=== PATIENT | female | born 1980 | race Hispanic/Latino ===

== ENCOUNTER 2021-01-28 16:13 | Emergency (ER) | payer SELFPAY ==
[~2021-01-28] VITALS: Ht 154.9 cm; Wt 86.2 kg
[2021-01-28] MEDS ORDERED: DiphenhydrAMINE HCL 50 MG/ML VIAL ONE (16:29)
[2021-01-28] MEDS ORDERED: FAMOTIDINE 20MG VIAL IV ONE ×2 (16:29→16:30)
[2021-01-28] MEDS ORDERED: SOLU-MEDROL 125MG VIAL ONE (16:29)
[2021-01-28] MEDS ORDERED: DiphenhydrAMINE HCL 50 MG/ML VIAL IV ONE (16:30)
[2021-01-28] MEDS ORDERED: SOLU-MEDROL 125MG VIAL IVP ONE (16:30)
[2021-01-28] MEDS ORDERED: CETI1SOL17 PO (16:51)
[2021-01-28] MEDS ORDERED: FAMO-136 PO (16:51)
[2021-01-28] MEDS ORDERED: PRED20TA3 PO (16:51)
[2021-01-28] MEDS ORDERED: EPIN0.3P3 IJ (16:51)
[2021-01-28 17:06] VITALS: BP 126/84
== END 2021-01-28 17:08 | disposition home or self-care (01) ==
LOC: EDH 16:13
DX: T63.441A Toxic effect of venom of bees, accidental (unintentional), initial encounter (principal); T78.3XXA Angioneurotic edema, initial encounter; Z79.52 Long term (current) use of systemic steroids; Y92.89 Other specified places as the place of occurrence of the external cause
CPT/HCPCS: 96374; 96375; 99284; J1200; J2930; J3490